=== PATIENT | male | born 1945 | race Caucasian/White ===

== ENCOUNTER → 2017-01-27 | Outpatient (REF) ==
[~2017-01-27] MED LIST: AMARYL1 MG PO; AMARYL4 MG PO; AMLODIPINE; AMLODIPINE/BENA1 CA2 PO; BENAZEPRIL; METFORMIN500 MG PO; ONGLYZA5 MG PO; SUPER EPA 1201200 MG PO
== END ==
LOC: ZLAB.WCH 11:34
DX: Z01.89 Encounter for other specified special examinations (principal)
CPT/HCPCS: G0103

== ENCOUNTER → 2017-05-02 | Outpatient (REF) | LOC: ZLAB.WCH 17:56 | DX: Z01.89 Encounter for other specified special examinations (principal) ==

== ENCOUNTER → 2017-11-14 | Outpatient (REF) | LOC: ZLAB.WCH 18:01 | DX: Z01.89 Encounter for other specified special examinations (principal) ==

== ENCOUNTER → 2017-12-05 | Outpatient (CLI) | payer OTHER, MEDICARE | LOC: SUN.DIA 11:19 | DX: E11.21 Type 2 diabetes mellitus with diabetic nephropathy (principal); E11.40 Type 2 diabetes mellitus with diabetic neuropathy, unspecified; E11.22 Type 2 diabetes mellitus with diabetic chronic kidney disease; N18.9 Chronic kidney disease, unspecified; Z79.4 Long term (current) use of insulin; E66.9 Obesity, unspecified; Z68.32 Body mass index [BMI] 32.0-32.9, adult; Z71.3 Dietary counseling and surveillance; I12.9 Hypertensive chronic kidney disease with stage 1 through stage 4 chronic kidney disease, or unspecified chronic kidney disease | CPT/HCPCS: G0109 ==

== ENCOUNTER → 2018-01-16 | Outpatient (CLI) | payer OTHER, MEDICARE | LOC: SUN.DIA 09:47 | DX: E11.21 Type 2 diabetes mellitus with diabetic nephropathy (principal); E11.40 Type 2 diabetes mellitus with diabetic neuropathy, unspecified; E11.22 Type 2 diabetes mellitus with diabetic chronic kidney disease; I12.9 Hypertensive chronic kidney disease with stage 1 through stage 4 chronic kidney disease, or unspecified chronic kidney disease; N18.9 Chronic kidney disease, unspecified; Z79.4 Long term (current) use of insulin; E66.9 Obesity, unspecified; Z68.31 Body mass index [BMI] 31.0-31.9, adult; Z71.3 Dietary counseling and surveillance ==

== ENCOUNTER → 2018-01-31 | Outpatient (REF) | LOC: ZLAB.WCH 16:02 | DX: Z01.89 Encounter for other specified special examinations (principal) ==

== ENCOUNTER → 2018-06-15 | Outpatient (REF) | LOC: ZLAB.WCH 14:08 | DX: Z01.89 Encounter for other specified special examinations (principal) | CPT/HCPCS: G0103 ==

== ENCOUNTER → 2018-06-17 | Outpatient (REF) | LOC: ZLAB.WCH 18:04 | DX: Z01.89 Encounter for other specified special examinations (principal) ==

== ENCOUNTER → 2018-07-03 | Outpatient (REF) | LOC: ZLAB.WCH 16:10 | DX: Z01.89 Encounter for other specified special examinations (principal) ==

== ENCOUNTER → 2018-10-06 | Outpatient (REF) | LOC: ZLAB.WCH 09:52 | DX: Z01.89 Encounter for other specified special examinations (principal) ==

== ENCOUNTER 2019-02-21 12:08 | Day surgery (SDC) | payer MEDICARE, OTHER ==
[~2019-02-21] VITALS: Ht 177.8 cm; Wt 96.2 kg
[~2019-02-21 12:08] MED LIST changes: +APRESOLINE 25MG25 MG PO; +CALCITRIOL PO; +ELIQUIS 2.5 PO; +JANUVIA 100MG100 MG PO; +JANUVIA25 MG PO; +LASIX 40MG TABL40 MG PO; +LEVEMIR100 U/ML SQ; +NORVASC 10MG10 MG PO
[2019-02-21 13:13] LABS: POTASSIUM 4.7 mmol/L (3.4-5.0)
[2019-02-21 13:15] LABS: PROTHROMBIN TIME 11.4 SECONDS (9.7-12.8)
[2019-02-21] MEDS ORDERED: TOPROL XL 50MG50 MG PO (13:38)
[2019-02-21 13:47] LABS: THYROID STIMULATING HORMONE 3.49 uIU/mL (0.465-4.680)
[2019-02-21 14:30] VITALS: BP 104/69; PULSE 59
--- NOTE | 2019-02-21 14:30 | NUR ---
REPORT FROM PATTY BURGOS RECRUITING MANAGER, PT IS AWAKE AND ALERT, IN ROOM, CALLED FOR EKG. PT SITS UP IN BED, NO C/O, TAKES JUICE
[2019-02-21 14:45] VITALS: BP 110/77; PULSE 59
[2019-02-21 15:00] VITALS: BP 138/88; PULSE 59
--- NOTE | 2019-02-21 15:00 | NUR ---
PT SITS ON SIDE OF BED. REVIEWED DISCHARGE INST. WITH PT AND , ON CONSCIOUS SEDATION, ACTIVITY AND FOLLOWUP APPT 1 MONTH FOR EKG, WILL CALL ON SUNDAY, [facility] GIVEN WITH NO CHANGES. IV D'CD INTACT. PT UP IN ROOM DRESSED, DISCHARGED VIA W/C AT 1515 TO CAR WITH
== END 2019-02-21 15:15 | disposition home or self-care (01) ==
LOC: COL.CAR 12:08
PROVIDERS: Internal Medicine Cardiovascular Disease; Internal Medicine Interventional Cardiology
DX: I48.1 Persistent atrial fibrillation (principal); I13.0 Hypertensive heart and chronic kidney disease with heart failure and stage 1 through stage 4 chronic kidney disease, or unspecified chronic kidney disease; E11.22 Type 2 diabetes mellitus with diabetic chronic kidney disease; N18.4 Chronic kidney disease, stage 4 (severe); I50.9 Heart failure, unspecified; Z79.01 Long term (current) use of anticoagulants; Z79.4 Long term (current) use of insulin; Z80.9 Family history of malignant neoplasm, unspecified; R60.0 Localized edema; G47.33 Obstructive sleep apnea (adult) (pediatric); E21.1 Secondary hyperparathyroidism, not elsewhere classified; D64.9 Anemia, unspecified
CPT/HCPCS: J2704; J7030

== ENCOUNTER → 2019-09-22 | Outpatient (CLI) | payer MEDICARE, OTHER ==
[~2019-09-22] MED LIST changes: +TOPROL XL 50MG50 MG PO
== END ==
LOC: COL.VAS 08-11 15:00
DX: N18.3 Chronic kidney disease, stage 3 (moderate) (principal)

== ENCOUNTER 2019-12-30 19:20 | Inpatient (IN) | payer MEDICARE, OTHER ==
[2019-12-30] VITALS (184 sets, daily range): BP systolic 90–121; BP diastolic 59–90; PULSE 30–61; TEMP 97.7; O2SAT 64–100
[~2019-12-30] VITALS: Ht 177.8 cm; Wt 100.0 kg
[2019-12-30] MEDS ORDERED: CORDARONE200 MG/TAB PO (22:15)
[2019-12-30] MEDS ORDERED: SODIUM BICARBO650 MG PO (22:17)
[2019-12-30] MEDS ORDERED: IMDUR 30MG30 MG/TAB PO (22:20)
[2019-12-30] MEDS ORDERED: VITAMIN D PO (22:21)
[2019-12-30] MEDS ORDERED: IMODIUM A-D2 MG PO (22:22)
[2019-12-30 22:50] LABS: HEMATOCRIT 40.1 % (42.0-52.0); MEAN CELL VOLUME 90 fl (80.0-100.0); MEAN CORPUSCULAR HEMOGLOBIN 29 pg (27.0-31.0); MEAN CORPUSCULAR HGB CONC 32 g/dl (33.0-37.0); MEAN PLATELET VOLUME 10.6 fl (7.4-10.4); PLATELET COUNT 199 K/mm3 (130-400); RED BLOOD COUNT 4.46 M/mm3 (4.20-5.60); REDCELL DISTRIBUTION WIDTH-CV 13.2 % (11.5-14.5)
[2019-12-30 22:59] LABS: CALCIUM 8.6 mg/dL (8.4-10.2); CREATININE, serum 6.56 (0.66-1.25)
[2019-12-30 23:02] LABS: POTASSIUM 7.2 mmol/L (3.4-5.0)
[2019-12-31] VITALS (464 sets, daily range): BP systolic 70–121; BP diastolic 52–90; PULSE 54–61; TEMP 97.5–97.8; O2SAT 45–100
--- NOTE | 2019-12-31 02:33 | NUR ---
1944 - REPORT RECEIVED FROM AUBREY MAGALLANES OF [facility]. 1952 - EMS CALLED PT ENROUTE AND ABOUT 10 MINS ETA. 2004 - PT ARRIVED IN UNIT VIA STRETCHER, ALERT AND ORIENTED, INDEPENDENT AND WENT TO BATHROOM RIGHT AWAY FOR A BM. PT ON ROOM AIR, COMPLAINING OF CHEST PAIN 4/10 THAT WAS DESCRIBED ACHE-Y TYPE OF PAIN PER PATIENT. PT DENIED NEEDING MEDICATION AT THIS TIME. PT ALSO BROUGHT HIS PILL BOX, EYE DROPS AND LEVAMIR PEN WHICH WAS SENT TO PHARMACY THROUGH [facility]. BP INITIALLY LOW AT 70'S AND WENT TO 90S ON REPEAT CYCLE AFTER 15 MINS. OTHERWISE, VSS. 2042 - GERALDO CALLED AND NOTIFIED BY THIS RN UPON PT'S ARRIVAL. 2044 - DR. KELLOGG CALLED FOR CONSULT AND ORDERED ECHO STAT AND WILL SEE PT AFTER. 2049 - RAD CALLED AND NOTIFIED FOR THE ECHO. 2119 - PT'S BP MAINTAINING AT 60'S- 80'S, DR. CHOW NOTIFIED AND ORDERED NS 500 ML BOLUS TO RUN FOR 3 HOURS AND MAINTENACE FLUID TO FOLLOW AT 50 ML/HR. 2124 - WORKERS COMPENSATION ADJUSTER AT BEDSIDE FOR ECHO STUDY. 2139 - DR. KELLOGG AT BEDSIDE EVALUATING PT. ALSO, BP HAS BEEN MENTIONED BY THIS RN TO MD AND OKAY WITH IT BEING IN THE 60-80'S LONG PT AWAKE AND ALERT AND ASYMPTOMATIC. BOLUS WAS STOPPED PER DR. CHOW' ORDER PER DR. KELLOGG'S RECCOMENDATION.
--- NOTE | 2019-12-31 02:46 | NUR ---
2300 - PT WAS ASSISTED TO BEDSIDE COMMODE BY JEYSON WINKLER. PT WAS ABLE TO SIT AT THE BEDSIDE COMMODE AND PASSED OUT WHILE TRYING TO HAVE A BM. PER DRUM SANDER OFFBEARER. PT STARTED LEANING FORWARD TOWARDS HER AND WAS ASSISTED SLOWLY TO THE FLOOR AND PT SRARTED YELLING FOR STAFF'S HELP. PT WAS FOUND BY THIS RN AND AUBREY CUMMINGS KNEELING ALL THE WAY DOWN TO THE FLOOR WITH DRUM SANDER OFFBEARER IN FRONT OF PT TRYING TO HOLD UPPER BODY TO AVOID COMPLETELY FALLING DOWN. PT WAS THEN ASSISTED BACK TO BED WITH 3 STAFF, PT WAS INITIALLY UNCONSCIOUS AND THEN REGAINED CONSCIOUSNESS FEW SECS LATER. WHEN ASKED IF HE KNEW WHAT JUST HAPPENED, HE COULD NOT REMEBER THAT HE PASSED OUT. HE JUST FELT DIZZY AND WEAK HE VERBALIZED. HE DENIES ANY PAIN. ROM WNL. HR AT 30'S SOON HE WAS BACK IN MONITOR AND THE REST OF HIS VITAL SIGNS STABLE. 2304 - BEDROS NOFIED WITH INCIDENT AND ORDERED THIS RN TO CALL DR. KELLOGG WHICH WAS NOTIFIED RIGHT AFTER. ORDERED DOPAMINE,ASPIRIN, PLAVIX AND PACMAKER INTERROGATION WHICH WAS STARTED RIGHT AWAY BY AUBREY YATES. 2315 - DOPAMINE DRIP STARTED ORDERED. 2336 - HEPARIN DRIP STARTED ORDERED. 2344 - DR. KELLOGG CALLED AND UPDATED ABOUT RESULTS OF PACEMAKER INTERROGATION AND EKG RESULTS, NO NEW ORDERS GIVEN AT THIS TIME. 0000 - PT'S LJ CALLED AND UPDATED, ALL QUESTIONES ANSWERED. AT THIS TIME, PT'S VSS, DENIES ANY PAIN AND NAUSEA IS BETTER. WILL CONTINUE MONITORING.
--- NOTE | 2019-12-31 07:15 | NUR ---
REPORT GIVEN TO AUBREY CROCKER.
[2019-12-31 07:35] LABS: HEMATOCRIT 42.1 % (42.0-52.0); HEMOGLOBIN 13.4 g/dl (13.5-18.0); INR 1.6 (0.8-3.0); MEAN CELL VOLUME 91 fl (80.0-100.0); MEAN CORPUSCULAR HEMOGLOBIN 29 pg (27.0-31.0); MEAN CORPUSCULAR HGB CONC 32 g/dl (33.0-37.0); MEAN PLATELET VOLUME 11.1 fl (7.4-10.4); PLATELET COUNT 215 K/mm3 (130-400); RED BLOOD COUNT 4.65 M/mm3 (4.20-5.60); REDCELL DISTRIBUTION WIDTH-CV 13.3 % (11.5-14.5)
[2019-12-31 07:57] LABS: PARTIAL THROMBOPLASTIN TIME 145.8 SECONDS (26.0-37.0)
[2019-12-31 07:58] LABS: CALCIUM 8.2 mg/dL (8.4-10.2); CREATININE, serum 6.81 (0.66-1.25)
[2019-12-31 08:02] LABS: PHOSPHOROUS 10.5 mg/dL (2.5-4.5); POTASSIUM 6.4 mmol/L (3.4-5.0)
[2019-12-31 08:14] LABS: TROPONIN-I 74.3 ng/mL (0.000-0.035)
[2019-12-31 08:37] LABS: CREATININE, serum 4.76 (0.66-1.25); FRACTIONAL EXCRETION OF NA+ 0.2 %
[2019-12-31 08:37] LABS: BAND 7 % (0-10); LYMPHOCYTE 9 % (20.0-51.0); NEUTROPHILS 72 % (42.0-75.2); PLATELET ESTIMATE NORMAL (NORMAL)
[2019-12-31 10:12] LABS: IRON,SERUM 33 ug/dL (35-150); TOTAL IRON BINDING CAPACITY 137 ug/dL (261-462)
[2019-12-31 11:39] LABS: ALBUMIN 2.2 gm/dL (3.5-5.0); BILIRUBIN,TOTAL 1.1 mg/dL (0.0-1.0); CALCIUM 7.4 mg/dL (8.4-10.2); CREATININE, serum 5.04 (0.66-1.25); MAGNESIUM 1.8 mg/dL (1.6-2.3); TOTAL PROTEIN 4.7 gm/dL (6.4-8.2)
[2019-12-31 11:43] LABS: POTASSIUM 3.5 mmol/L (3.4-5.0)
[2019-12-31 11:49] LABS: PHOSPHOROUS 23.6 mg/dL (2.5-4.5)
--- NOTE | 2019-12-31 12:18 | NUR ---
We were preparing the patient for cath lab technologist for heart cath and TDC placement, his vital signs had been stable through the morning, patient denied any chest pain or SOA, he had Dopamine gtt at 5mcg/kg/hr, critical potassium/troponin/hepxa reported on morning labs, had been by and was aware of abnormal labs, at 1022 cath lab technologist nurse was in room and patient went unresponsive/ he was pulseless and we started CPR at that time, ICU charge AUBREY Castañeda got the crash card and we placed defib pads and notified door maker/cardiology/attending physician whom is , we coded the patient and regained a pulse around 1050 and got patient to the cath lab technologist at that time
--- NOTE | 2019-12-31 12:24 | NUR ---
Patient is a proclaimed donor. Per [facility] patient is a candidate for tissue donation. They will contact family and be in contact with this bottle house pumper. Confirmation # [id number]
--- NOTE | 2019-12-31 12:29 | NUR ---
Field Superintendent was called to room for a code. Field Superintendent met with family and prayed with them.
--- NOTE | 2019-12-31 13:53 | NUR ---
HOLLY responded to code. SW contacted and met the patient's , Maru, at the ED entrance and escorted her to ICU. The patient's was provided with an update on the patient's status. The patient then went to the medical lab specialist and coded again. The patient . HOLLY, Rn Telephone Triagekit Ramesh, and RN all provided support. Tool Clerk was notified and [facility] was contacted. The patient is a donor.
[2019-12-31 16:40] LABS: HEPATITIS B SURFACE ANTIBODY <2.0 (()); HEPATITIS B SURFACE ANTIGEN Negative (Negative); HEPATITIS C VIRUS ANTIBODY Negative (Negative)
--- NOTE | 2019-12-31 18:06 | NUR ---
body released to [facility]
[2019-12-31 18:24] LABS: TRANSFERRIN 124 mg/dL (180-329)
== END 2019-12-31 18:11 | disposition expired ==
LOC: ICU 19:20 → EU 20:04 → ICU 20:04
PROVIDERS: Internal Medicine Interventional Cardiology; ADMIT Internal Medicine Nephrology
PROC: 0BH17EZ Insertion of Endotracheal Airway into Trachea, Via Natural or Artificial Opening (ICD-10-PCS; principal; 2019-12-30)
PROC: 5A1935Z Respiratory Ventilation, Less than 24 Consecutive Hours (ICD-10-PCS; 2019-12-30)
PROC: 4A023N7 Measurement of Cardiac Sampling and Pressure, Left Heart, Percutaneous Approach (ICD-10-PCS; 2019-12-31)
PROC: B2111ZZ Fluoroscopy of Multiple Coronary Arteries using Low Osmolar Contrast (ICD-10-PCS; 2019-12-31)
DX: I21.09 ST elevation (STEMI) myocardial infarction involving other coronary artery of anterior wall (principal); I50.21 Acute systolic (congestive) heart failure; N18.4 Chronic kidney disease, stage 4 (severe); N17.9 Acute kidney failure, unspecified; E87.1 Hypo-osmolality and hyponatremia; E87.2 Acidosis; J81.1 Chronic pulmonary edema; I25.10 Atherosclerotic heart disease of native coronary artery without angina pectoris; E87.5 Hyperkalemia; R57.0 Cardiogenic shock; E11.22 Type 2 diabetes mellitus with diabetic chronic kidney disease; E11.40 Type 2 diabetes mellitus with diabetic neuropathy, unspecified; E11.319 Type 2 diabetes mellitus with unspecified diabetic retinopathy without macular edema; I12.9 Hypertensive chronic kidney disease with stage 1 through stage 4 chronic kidney disease, or unspecified chronic kidney disease; I48.91 Unspecified atrial fibrillation; Z95.0 Presence of cardiac pacemaker; I45.10 Unspecified right bundle-branch block; G47.33 Obstructive sleep apnea (adult) (pediatric); Z79.4 Long term (current) use of insulin
CPT/HCPCS: J1265; J1644; J1815; J2405; J7030